=== PATIENT | female | born 1985 | race African-American/Black ===

== ENCOUNTER 2019-08-27 23:27 | Emergency (ER) | payer MEDICAID, OTHER ==
[~2019-08-27] VITALS: Ht 170.2 cm; Wt 69.0 kg
[2019-08-28] MEDS ORDERED: AMOXICILLIN/POTASSIUM CLAVULANATE 875/125MG TAB PO ONE
[2019-08-28 00:05] VITALS: BP 118/64
== END 2019-08-28 00:35 | disposition home or self-care (01) ==
LOC: ER 23:27 → EDBD 23:27 → ER 08-28 00:35
DX: T81.49XA Infection following a procedure, other surgical site, initial encounter (principal); J40 Bronchitis, not specified as acute or chronic; Y92.89 Other specified places as the place of occurrence of the external cause
CPT/HCPCS: 99283

== ENCOUNTER 2021-02-02 22:03 | Emergency (ER) | payer MEDICAID ==
[~2021-02-02] VITALS: Ht 172.7 cm; Wt 100.0 kg
[2021-02-02] MEDS ORDERED: LORAZEPAM 1MG TABLET PO ONE (23:00)
[2021-02-02] MEDS ORDERED: HALOPERIDOL LACTATE 5MG/ML VIAL IM STA (23:39)
[2021-02-02] MEDS ORDERED: LORAZEPAM 2MG/ML CPJ IM STA (23:39)
[2021-02-02] MEDS ORDERED: DIPHENHYDRAMINE 50MG/ML VIAL IM STA (23:39)
[2021-02-02 23:50] LABS: CLARITY URINE CLOUDY (CLEAR); COLOR URINE DARK YELLOW (YELLOW); KETONES URINE 4+ (NEGATIVE); LEUKOCYTE ESTERASE URINE 1+ (NEGATIVE); NITRITE URINE NEGATIVE (NEGATIVE); OCCULT BLOOD URINE NEGATIVE (NEGATIVE); PH URINE 5.5 (4.5-8.0); PROTEIN URINE 1+ (NEGATIVE); SPECIFIC GRAVITY URINE 1.026 (1.005-1.030)
[2021-02-03 00:18] LABS: *BENZODIAZEPINES SCREEN URINE NEGATIVE (NEGATIVE); METHADONE URINE SCREEN NEGATIVE (NEGATIVE); OPIATES URINE SCREEN NEGATIVE (NEGATIVE); PHENCYCLIDINE URINE SCREEN NEGATIVE (NEGATIVE)
[2021-02-03 00:19] LABS: *BARBITURATES SCREEN URINE NEGATIVE (NEGATIVE)
[2021-02-03 00:28] LABS: *AMPHETAMINES SCREEN URINE PRESUMTIVE POSITIVE (NEGATIVE); *COCAINE SCREEN URINE PRESUMTIVE POSITIVE (NEGATIVE); CANNABINOID URINE SCREEN PRESUMTIVE POSITIVE (NEGATIVE)
[2021-02-03] MEDS ORDERED: LORAZEPAM 1MG TABLET PO ONE (00:30)
[2021-02-03 05:30] VITALS: BP 110/56
== END 2021-02-03 05:57 | disposition home or self-care (01) ==
LOC: ER 22:03
DX: O26.892 Other specified pregnancy related conditions, second trimester (principal); Z3A.18 18 weeks gestation of pregnancy
CPT/HCPCS: 76815; 80305; 81003; 96372; 99291; J1200; J1630; J2060

== ENCOUNTER 2021-02-04 09:16 | Emergency (ER) | payer MEDICAID ==
[~2021-02-04] VITALS: Ht 170.2 cm; Wt 100.0 kg
[2021-02-04] MEDS ORDERED: ACETAMINOPHEN 325MG TABLET PO ONE (09:45)
[2021-02-04] MEDS ORDERED: SODIUM CHLORIDE 0.9% 1,000 ML IV ONE (09:45)
[2021-02-04 11:31] LABS: CLARITY URINE CLEAR (CLEAR); COLOR URINE DARK YELLOW (YELLOW); KETONES URINE 3+ (NEGATIVE); LEUKOCYTE ESTERASE URINE 1+ (NEGATIVE); NITRITE URINE NEGATIVE (NEGATIVE); OCCULT BLOOD URINE NEGATIVE (NEGATIVE); PH URINE 5.5 (4.5-8.0); PROTEIN URINE 1+ (NEGATIVE); SPECIFIC GRAVITY URINE 1.024 (1.005-1.030)
[2021-02-04 11:52] LABS: METHADONE URINE SCREEN NEGATIVE (NEGATIVE); OPIATES URINE SCREEN NEGATIVE (NEGATIVE); PHENCYCLIDINE URINE SCREEN NEGATIVE (NEGATIVE)
[2021-02-04 11:53] LABS: *BARBITURATES SCREEN URINE NEGATIVE (NEGATIVE); *BENZODIAZEPINES SCREEN URINE NEGATIVE (NEGATIVE)
[2021-02-04 12:00] LABS: *AMPHETAMINES SCREEN URINE PRESUMTIVE POSITIVE (NEGATIVE); *COCAINE SCREEN URINE PRESUMTIVE POSITIVE (NEGATIVE); CANNABINOID URINE SCREEN PRESUMTIVE POSITIVE (NEGATIVE)
[2021-02-04] MEDS ORDERED: DIPHENHYDRAMINE 50MG/ML VIAL IM ONE (12:00)
[2021-02-04] MEDS ORDERED: HALOPERIDOL LACTATE 5MG/ML VIAL IM ONE ×2 (12:00→12:45)
[2021-02-04] MEDS ORDERED: LORAZEPAM 2MG/ML CPJ IM ONE ×2 (12:00→12:45)
[2021-02-04] MEDS ORDERED: CEFTRIAXONE SODIUM 500 MG/VIAL IM ONE (13:45)
[2021-02-04] MEDS: AZITHROMYCIN 500 MG TABLET PO SCH (14:22)
[2021-02-04 14:42] LABS: BASOPHILS % 0.3 % (0.0-2.0); EOSINOPHILS % 3.7 % (0.0-5.0); HEMATOCRIT. 29.5 % (36.0-48.0); HEMOGLOBIN. 10.1 g/dL (12.0-16.0); LYMPHOCYTES % 15.5 % (20.0-50.0); MEAN CORPUSCULAR HEMOGLOBIN 28.7 pg (28.0-32.0); MEAN CORPUSCULAR VOLUME 83.9 fL (81.0-99.0); MEAN PLATELET VOLUME 8.9 fl (7.4-10.4); MONOCYTES % 7.2 % (2.0-8.0); NEUTROPHILS % 73.3 % (40.0-76.0); PLATELET 195 x1000/uL (130-400); RED BLOOD CELL COUNT 3.52 mill/uL (4.2-5.4); RED CELL DISTRIBUTION WIDTH 13.3 % (11.6-14.6)
[2021-02-04 14:45] LABS: CHLORIDE 112 mEq/L (98-107)
[2021-02-04 16:34] LABS: B-HCG QUANTITATIVE 8041 mIU/mL (<3)
[2021-02-05] MEDS: AZITHROMYCIN 500 MG TABLET PO SCH (10:05)
[2021-02-05] MEDS ORDERED: CEPH500C2 MT (11:51)
[2021-02-05 12:30] VITALS: BP 118/62
== END 2021-02-05 13:35 | disposition home or self-care (01) ==
LOC: ER 09:16
DX: O23.32 Infections of other parts of urinary tract in pregnancy, second trimester (principal); F19.10 Other psychoactive substance abuse, uncomplicated; F29 Unspecified psychosis not due to a substance or known physiological condition; F17.290 Nicotine dependence, other tobacco product, uncomplicated; F14.10 Cocaine abuse, uncomplicated; F15.10 Other stimulant abuse, uncomplicated; Z3A.25 25 weeks gestation of pregnancy
CPT/HCPCS: 36415; 76805; 80053; 80305; 81003; 81025; 84702; 85025; 86850; 86900; 86901; 87086; 96360; 96361; 96372; 99291; J0696; J1200; J1630; J2060; J7030; Z7610